=== PATIENT | male | born 1965 | race Caucasian/White ===

== ENCOUNTER 2018-02-02 10:41 | Emergency (ER) | payer OTHER ==
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
[2018-02-02 12:00] VITALS: TEMP 97.9
[2018-02-02 12:01] VITALS: BP 146/98; O2SAT 99
== END 2018-02-02 11:57 | disposition home or self-care (01) ==
LOC: ER 10:41
DX: S13.4XXA Sprain of ligaments of cervical spine, initial encounter (principal); S09.90XA Unspecified injury of head, initial encounter; V49.40XA Driver injured in collision with unspecified motor vehicles in traffic accident, initial encounter; Z88.0 Allergy status to penicillin; Z88.5 Allergy status to narcotic agent; I10 Essential (primary) hypertension; I25.2 Old myocardial infarction
CPT/HCPCS: 70450; 72125; 96372; 99284